=== PATIENT | male | born 1970 | race Caucasian/White ===

== ENCOUNTER → 2024-04-22 13:50 | Outpatient (REF) | payer BC, SELFPAY | LOC: HWRAD 13:50 | PROVIDERS: ATTENDING PHYSICIAN Internal Medicine | DX: R22.31 Localized swelling, mass and lump, right upper limb (principal); R22.42 Localized swelling, mass and lump, left lower limb; R22.2 Localized swelling, mass and lump, trunk | CPT/HCPCS: 76604; 76882 ==